=== PATIENT | female | born 1955 | race American Indian/Alaskan Native ===

== ENCOUNTER 2023-06-19 11:26 | Emergency (ER) | payer MEDICARE ==
[~2023-06-19] VITALS: Ht 160 cm; Wt 68.2 kg
[2023-06-19 11:31] VITALS: TEMP 98.1
[2023-06-19] MEDS ORDERED: LOSA-381 PO (11:32)
[2023-06-19] MEDS: OMEPRAZOLE 20 MG CAPSULE PO ONE (13:26)
[2023-06-19] MEDS: ACETAMINOPHEN/CODEINE 300-30 MG TABLET PO ONE (13:27)
[2023-06-19 14:13] VITALS: BP 136/88; PULSE 82; RESP 16
[2023-06-19] MEDS ORDERED: OMEP20 PO (14:20)
[2023-06-19] MEDS ORDERED: ACET-2080 PO (14:20)
== END 2023-06-19 14:45 | disposition home or self-care (01) ==
LOC: EMS 11:26
DX: S46.911A Strain of unspecified muscle, fascia and tendon at shoulder and upper arm level, right arm, initial encounter (principal); I10 Essential (primary) hypertension; X58.XXXA Exposure to other specified factors, initial encounter; Y93.89 Activity, other specified; Y92.89 Other specified places as the place of occurrence of the external cause; Y99.8 Other external cause status
CPT/HCPCS: 99283